=== PATIENT | female | born 1995 | race Caucasian/White ===

== ENCOUNTER 2021-01-15 18:32 | Emergency (ER) | payer OTHER ==
[~2021-01-15 18:32] MED LIST: BACTRIM DS TAB1 EACH PO; BACTROBAN OINT22 GM EXT; BENTYL 20MG TAB20 MG PO; CLARITIN-D 121 EACH PO; DELSYM30 MG/5 ML PO; KEFLEX CAP 500500 MG PO; MOBIC15 MG PO; NORFLEX 100 MG100 MG PO; Voltaren Gel 1% TOP; ZOFRAN4 MG PO
[2021-01-15 19:40] LABS: BUN/CREATININE RATIO 6 (0-10)
[2021-01-15 19:44] LABS: HEMOGLOBIN 14.2 gm/dl (12.3-15.3); RED BLOOD COUNT 4.55 M/UL (4.00-5.10); WHITE BLOOD COUNT 10.3 K/UL (4.5-11.0)
== END 2021-01-15 20:35 | disposition home or self-care (01) ==
LOC: ER1 18:32
PROVIDERS: Emergency Medicine
DX: R55 Syncope and collapse (principal); R51.9 Headache, unspecified
CPT/HCPCS: 80053; 81001; 84703; 85025; 96374; 96375; 99284; J1885; J2405

== ENCOUNTER 2021-03-16 20:54 | Emergency (ER) | payer OTHER ==
[2021-03-16] MEDS ORDERED: PENVEE K 500 M500 MG PO (21:07)
[2021-03-16] MEDS ORDERED: LODINE CAP 300300 MG PO (21:07)
== END 2021-03-16 21:40 | disposition home or self-care (01) ==
LOC: ER1 20:54
DX: K03.81 Cracked tooth (principal); K02.9 Dental caries, unspecified; F17.210 Nicotine dependence, cigarettes, uncomplicated
CPT/HCPCS: 96372; 99282; J1885